=== PATIENT | female | born 1985 | race African-American/Black ===

== ENCOUNTER → 2016-09-18 | Outpatient (CLI) | payer MEDICARE, OTHER ==
[~2016-09-18] MED LIST: FOSRENOL750 MG PO; MELATONIN5 M1 PO; [UNRECOGNIZED DRUG - REMARK] PO
--- NOTE | ~2016-09-18 | CR63 ---
[facility] A Service of [facility] RADIOLOGY TEXT RESULTS PATIENT: HUNTER DURAN LOCATION: [facility] : 87 UNIT #: [id number] AGE: [address]: Peter Rodriguez III, MD SEX: F ORDER DR: [id number] [facility] [address] [place], [place] [address] [id number] O MR#: [id number] Acc #: [id number] NAME: HUNTER DURAN : 1985 SEX: F STUDY DATE/TIME: 09/18/2016 8:45 UNIT: [facility] ROOM: STUDY DESCRIPTION: CR Chest 2 View Attending Physician: Peter Rodriguez III, M.D. Ordering Physician: Peter Rodriguez III, M.D. Primary Care Physician: Elizabeth Lozano Aprn MEDICAL IMAGING REPORT This report is preliminary unless electronic signature is present EXAM PA and lateral chest radiograph, 09/18/2016 COMPARISON 01/10/2006 HISTORY Preop assessment paraesophageal hernia repair and lap-band placement. FINDINGS PA and lateral views of the chest are obtained. The cardiovascular configuration is normal and the lungs are clear. CONCLUSION Normal chest. Dictated by... Johnathan Killian M.D. THIS IS AN ELECTRONICALLY VERIFIED REPORT Johnathan Killian M.D. at 09/18/2016 4:45 PM Arabella TD: 09/18/2016 12:24 JOB #: [id number] MEDICAL IMAGING REPORT COPY
--- NOTE | ~2016-09-18 | CR97 ---
[facility] A Service of [facility] RADIOLOGY TEXT RESULTS PATIENT: HUNTER DURAN LOCATION: [facility] : 87 UNIT #: [id number] AGE: [address]: Peter Rodriguez III, MD SEX: F ORDER DR: [id number] [place], [place] [address] [id number] O MR#: [id number] Acc #: [id number] NAME: HUNTER DURAN : 1985 SEX: F STUDY DATE/TIME: 09/18/2016 9:19 UNIT: [facility] ROOM: STUDY DESCRIPTION: CR Esophagram Attending Physician: Peter Rodriguez III, M.D. Ordering Physician: Peter Rodriguez III, M.D. Primary Care Physician: Elizabeth Lozano Aprn MEDICAL IMAGING REPORT This report is preliminary unless electronic signature is present EXAM Single-contrast barium esophagram. HISTORY Preoperative examination prior to laparoscopic gastric banding surgery. TECHNIQUE The patient was administered thin barium and multiple fluoroscopic images were obtained, both in upright DEBRA and prone NELSON positions. FINDINGS Patient's thoracic esophagus is of normal caliber. There is no evidence of stricture or mass lesion. Esophageal motility appeared to be normal. I did not see any evidence of hiatal hernia, and no reflux was identified. Total fluoroscopy time was 0.5 minutes, and a total of 10 fluoroscopy images were obtained. IMPRESSION Normal single-contrast barium esophagram. Dictated by... Thuy Almanza M.D. THIS IS AN ELECTRONICALLY VERIFIED REPORT Thuy Almanza M.D. at 09/22/2016 4:43 PM AFF/js TD: 09/22/2016 11:35 JOB #: [id number] [facility] A Service of [facility] RADIOLOGY TEXT RESULTS PATIENT: HUNTER DURAN LOCATION: [facility] : 87 UNIT #: [id number] AGE: [address]: Peter Rodriguez III, MD SEX: F ORDER DR: MEDICAL IMAGING REPORT COPY
--- NOTE | ~2016-09-18 | EKG ---
PATIENT: HUNTER DURAN UNIT #: [id number] Ventricular Rate: 75 BPM Atrial Rate: 75 BPM P-R Interval: 164 ms QRS Duration: 92 ms Q-T Interval: 384 ms QTC Calculation(Bezet): 428 ms P [place]: 62 degrees Calculated R [place]: 30 degrees Calculated T [place]: 48 degrees Diagnosis Line: Normal sinus rhythm Diagnosis Line: Normal ECG Diagnosis Line: No previous ECGs available Diagnosis Line: Confirmed by MICHELLE VELAZCO MD ([id number]) on 09/18/2016 Diagnosis Line: 4:47:04 PM INTERPRETING MD: JUAN A LAI
[2016-09-18 10:33] LABS: HEMATOCRIT 29.4 % (35.0-45.0); HEMOGLOBIN 9.9 gm/dL (12.0-16.0); MEAN CELL VOLUME 100.5 FL (83-96); MEAN CORPUSCULAR HEMOGLOBIN 33.7 PG (28-34); MEAN CORPUSCULAR HGB CONC 33.5 g/dL (30-36); RED BLOOD COUNT 2.93 X10e (3.90-5.30); RED CELL DISTRIBUTION WIDTH 14.1 % (11.0-15.5); WHITE BLOOD COUNT 4.7 X10e3 (4.0-10.5)
[2016-09-18 11:33] LABS: ALBUMIN SERUM 4.2 g/dL (3.5-5.0); BILIRUBIN,TOTAL 0.4 mg/dL (0.2-2.0); BUN/CREATININE RATIO 4.19; CALCIUM SERUM 8.6 mg/dL (8.4-10.2); CREATININE SERUM 13.1 mg/dL (0.6-1.4); GLOM FILT RATE Estimated 4.4 mL/min (>60); POTASSIUM 4.5 mmol/L (3.5-5.1); PROTEIN TOTAL SERUM 7.7 g/dL (6.0-8.3)
== END | disposition home or self-care (01) ==
LOC: CRAD 08:26
PROVIDERS: Surgery
DX: Z01.818 Encounter for other preprocedural examination (principal)
CPT/HCPCS: 36415; 71020; 74220; 80053; 80061; 84443; 85027; 93005

== ENCOUNTER → 2016-09-30 | Day surgery (SDC) | payer MEDICARE, OTHER ==
--- NOTE | ~2016-09-30 | CR7 ---
[facility] A Service of [facility] RADIOLOGY TEXT RESULTS PATIENT: HUNTER DURAN LOCATION: [facility] : 87 UNIT #: [id number] AGE: [address]: Peter Rodriguez III, MD SEX: F ORDER DR: [id number] [facility] [address] [place], [place] [address] [id number] O MR#: [id number] Acc #: [id number] NAME: HUNTER DURAN : 1985 SEX: F STUDY DATE/TIME: 09/30/2016 12:29 UNIT: [facility] ROOM: STUDY DESCRIPTION: CR Abdomen Single AP View Attending Physician: Peter Rodriguez III, M.D. Ordering Physician: Peter Rodriguez III, M.D. Primary Care Physician: Elizabeth Lozano Aprn MEDICAL IMAGING REPORT This report is preliminary unless electronic signature is present EXAM Abdomen 09/30/2016 INDICATIONS Postop Lap-Band placement. Evaluate position. Evaluate appearance. Supine view of the abdomen was obtained. FINDINGS There is a Lap-Band device present with an angle of 65 degrees off vertical to the spine. Bowel gas pattern is normal. The bones are normal. IMPRESSION The Lap-Band appears normal. Bowel gas pattern is normal. Dictated by... Oni Kelsey M.D. THIS IS AN ELECTRONICALLY VERIFIED REPORT Oni Kelsey M.D. at 09/30/2016 5:01 PM Amaury TD: 09/30/2016 16:42 JOB #: [id number] MEDICAL IMAGING REPORT COPY
--- NOTE | ~2016-09-30 | OR ---
Unit #: [id number] #: [id number] Patient: HUNTER DURAN [id number] [facility] [address] [place], [place] [address] [id number] O MR#: [id number] NAME: HUNTER DURAN ROOM: Date of Procedure: 09/30/2016 Admission Date: 09/30/2016 Surgeon: Peter Rodriguez III, M.D. : 1985 Attending Physician: Peter Rodriguez III, M.D. Primary Care Physician: Elizabeth Lozano Aprn OPERATIVE REPORT PREOPERATIVE DIAGNOSIS Chronic morbid obesity. POSTOPERATIVE DIAGNOSIS Chronic morbid obesity. SECONDARY DIAGNOSIS Anterior paraesophageal hernia. PROCEDURE PERFORMED Laparoscopic adjustable gastric banding (AP standard with low-profile port) and laparoscopic paraesophageal hernia repair. MILIEU THERAPIST Dr. Johnathan Clemente. SPECIMENS None. COMPLICATIONS None apparent. ESTIMATED BLOOD LOSS Minimal. INDICATIONS FOR PROCEDURE This is a 30-year-old lady, who has chronic morbid obesity with a BMI of 44 and associated comorbidities of hypertension as well as chronic renal failure on dialysis. She has been through the bariatric program at [facility] and understands risks and benefits of the procedure. We also specifically discussed the potential issues with an upcoming kidney transplant. In case, she is on medications that have side effects of weight gain or the fact that she may have to take multiple large pills requiring us to partially deflated band. She understands and wishes to proceed. DESCRIPTION OF PROCEDURE After consent was obtained, including the risks and benefits of slippage, erosion, port dysfunction, and possible failure of weight loss due to noncompliance, the patient was taken to the operating room and placed in the supine position. General anesthetic was administered and the abdomen was prepped and draped in standard surgical fashion. Unit #: [id number] #: [id number] Patient: HUNTER DURAN I began by making a 2 cm incision just above and to the left of the umbilicus. I used a Visiport to enter the peritoneal cavity without any difficulty. C02 pneumoperitoneum was then established. Next, I placed a 5 mm port in the right upper quadrant, a 5 mm Page liver retractor in the subxiphoid region to provide exposure of the gastroesophageal junction. Next, a 10 mm port was placed in the left upper quadrant and a 5 mm port was placed in the left lateral subcostal region. I began by performing an examination of the GE junction to evaluate for a hiatal hernia. We then scored the peritoneal attachments overlying the angle of His. I then opened up the clear space in the gastrohepatic ligament, and then using 2 blunt graspers, I identified the small fat pad crossing over the right crura. I swept the fat anterior to the crura off the crura and using the pars flaccida, I created a retrogastric tunnel where the blunt grasper exited at the angle of His. Once I had made this tunnel safely, I then inserted an Allergan AP band into the abdominal cavity. This adjustable gastric band was then place around the upper part of the stomach and fastened and buckled anteriorly. We then tacked the lateral fundus over the band to the proximal pouch with 2 interrupted 0 Ethibond sutures. I then used a third stitch to imbricate the excess anterior stomach by going from the lesser curvature up towards where the last stitch was placed. We then had excellent hemostasis. I removed the Page liver retractor. We then removed the port tubing through the initial port incision. The rest of the ports were removed, and the pneumoperitoneum was released. I then left a small tail on the tubing. We then attached the port to the excess band tubing. We placed a piece of Prolene mesh along the back side of the port and used a Prolene stitch to anchor this mesh in place. We then trimmed the excess mesh so that just a small footprint of mesh was in place behind the port. I then inserted the tubing back into the abdominal cavity, and we placed the port into a small pocket that was made just inferior to where our initial port incision was made. The mesh was in direct contact with the fascia, and this will scar in place to hold the port in place. We then injected all the port sites with 0.25% plain Marcaine, and I reapproximated the skin edges with interrupted 4-0 Vicryl subcuticular sutures. Steri-strips were then applied. The patient tolerated the procedure without any problems and returned to the recovery room in stable condition. ADDENDUM After exposure of the GE junction, the patient was noted to have a small to medium size anterior paraesophageal hernia. I scored the phrenoesophageal ligament, reduced the hernia defect and after identifying both the right and left crura, I reapproximated the defect with an interrupted 0 Ethibond [id number] suture. I then proceeded with the case as listed above. Dictated by... Peter Rodriguez III, M.D. VCL/elian TD: 10/01/2016 08:55 JOB #: [id number] Unit #: [id number] #: [id number] Patient: HUNTER DURAN OPERATIVE REPORT X Peter Rodriguez III, MD PROCEDURE OPERATIVE NOTE
== END | disposition home or self-care (01) ==
LOC: CSUR 09:00
DX: E66.01 Morbid (severe) obesity due to excess calories (principal); K44.9 Diaphragmatic hernia without obstruction or gangrene; J45.909 Unspecified asthma, uncomplicated; I12.9 Hypertensive chronic kidney disease with stage 1 through stage 4 chronic kidney disease, or unspecified chronic kidney disease; N18.9 Chronic kidney disease, unspecified; D64.9 Anemia, unspecified; Z98.51 Tubal ligation status; Z88.8 Allergy status to other drugs, medicaments and biological substances; Z68.41 Body mass index [BMI] 40.0-44.9, adult; Z79.899 Other long term (current) drug therapy; Z98.890 Other specified postprocedural states
CPT/HCPCS: 74000; 84703; C1781; J0690; J1650; J1885; J2405; J3010